=== PATIENT | male | born 1955 | race Caucasian/White ===

== ENCOUNTER 2024-04-23 23:41 | Inpatient (IN) | payer MEDICARE, SELFPAY ==
[2024-04-23 19:07] VITALS: BP 152/88
[2024-04-23 19:35] LABS: % Basophils 0.3 % (0-2); % Eosinophils 0.3 % (0-6); % Immature Granulocytes 0.6 % (0-0.5); % Monocytes 11.5 % (1.7-9.3); % Neutrophils 80.3 % (42.2-75.2); Absolute Eosinophils 0.1 10^3/uL (0-0.7); Absolute Immature Granulocytes 0.1 10^3/uL (0-0.05); Absolute Lymphocytes 1.1 10^3/uL (1.2-3.4); Absolute Monocytes 1.8 10^3/uL (0.1-0.6); Absolute Neutrophils 12.3 10^3/uL (1.4-6.5); Hematocrit 41.2 % (39.0-52.0); Mean Corpuscular Hgb 29.7 pg (27.0-31.0); Mean Corpuscular Volume 87.5 fL (80.0-94.0); Mean Platelet Volume 9.6 fL (7.4-10.4); Nucleated Red Blood Cells % 0 % (-); Platelet Count 256 10^3/uL (130-400); Red Blood Cell Count 4.71 10^6/uL (4.70-6.10); Red Cell Dist. Width 12.9 % (11.5-14.5); White Blood Cell Count 15.3 10^3/uL (4.8-10.8)
[2024-04-23 19:48] LABS: Lactic Acid 1.3 mmol/L (0.7-2.0)
[2024-04-23 19:50] LABS: ALT (SGPT) 17 U/L (0-50); AST (SGOT) 23 U/L (17-59); Albumin 3.9 g/dl (3.5-5.0); Alkaline Phosphatase 88 U/L (38-126); Blood Urea Nitrogen 21 mg/dl (9-20); Calcium 9.1 mg/dl (8.4-10.2); Carbon Dioxide 22 mmol/L (22-30); Chloride 102 mmol/L (98-107); Glucose 110 mg/dl (70-99); Potassium 3.3 mmol/L (3.5-5.1); Sodium 136 mmol/L (135-145); Total Bilirubin 1.2 mg/dl (0.2-1.3); Total Protein 6.7 g/dl (6.3-8.2); eGFR > 60.00
[2024-04-23 20:56] VITALS: BP 173/92
--- NOTE | 2024-04-23 21:06 | ED.GENMED ---
History of Present Illness
General
Chief Complaint: Skin Problem
Source: patient
Exam Limitations: none
Time Seen by Provider: 04/23/24 20:45
History of Present Illness
History of Present Illness:
68-year-old male presents with increased redness swelling and discoloration to the right ring finger. He has a history of multiple amputations to the right hand. He is not a diabetic. He is treated for hypertension. He denies fevers or chills.
No other complaints at this time. He called his hand surgeon today they started him on Bactrim. Has had 2 doses of this so far
Past History
Past History
ED Past Medical History: Cancer (Prostate), GERD, HTN, NIDDM and Other (Neuropathy, finger osteomyelitis); Negative IDDM
ED Past Surgical History: Appendectomy and Orthopedic (finger amputation x 3)
Social History
Tobacco: Non-smoker
Alcohol: None
Personal:
Living: with family
Family History
Family History: Other (reviewed and non-contributory)
Phy Exam
Physical Exam
Physical Exam:
General: Well-appearing male no acute respiratory distress
HEENT: Normocephalic atraumatic
Heart: Slightly tachycardic
Lungs: Clear no wheeze
Skin: Erythema with discoloration noted to the right ring finger. There is significant swelling to the right ring finger stump. No current drainage. Erythema is circumferential and spread slightly to the MCP joint. There is a chronic open wound
to the distal stump of the right index finger
Musculoskeletal exam: Right ring finger swollen tender diffusely
Sepsis
Sepsis Screening
Sepsis Assessment: Sepsis Ruled Out
Sepsis Screen
Sepsis Screen: Sepsis Ruled Out
Date: 04/23/24
Time: 21:40
Course
Orders/Labs/Results
Orders:
Orders
04/23/24 19:15
Comprehensive Metabolic Panel Urgent
04/23/24 19:16
C-Reactive Protein Urgent
Comment: ADD ON
Complete Blood Count/With Diff Urgent
Erythrocyte Sed Rate Urgent
Comment: ADD ON
Lactate Level [Lactic Acid] Urgent
04/23/24 20:54
CR Hand - Right Min 3 Views Urgent
Comment:
Reason For Exam: infection ring finger
04/23/24 21:00
Add On- LAB Urgent
Tests Added?: sed rate, crp
04/23/24 21:29
Piperacillin/Tazo 3.375 Gram [Zosyn] 3.375 gram in 50 ml IV NOW
Vancomycin [Vancocin] 2,000 mg 0.9% Sodium Chloride 500 ml [Nss] 500 ml IV NOW
04/23/24 21:45
Blood Culture Q30M
JOSUE Source: Blood/Venous
Specimen Description:
04/23/24 22:15
Blood Culture Q30M
JOUSE Source: Blood/Venous
Specimen Description:
Abnormal Lab Results
04/23/24 04/23/24
19:15 19:16
WBC 15.3 H 10^3/uL
(4.8-10.8)
Abs Immat Gran (auto) 0.1 H 10^3/uL
(0-0.05)
Absolute Neuts (auto) 12.3 H 10^3/uL
(1.4-6.5)
Absolute Lymphs (auto) 1.1 L 10^3/uL
(1.2-3.4)
Absolute Monos (auto) 1.8 H 10^3/uL
(0.1-0.6)
Immature Gran % 0.6 H %
(0-0.5)
Neutrophils % 80.3 H %
(42.2-75.2)
Lymphocytes % 7.0 L %
(20.5-51.1)
Monocytes % 11.5 H %
(1.7-9.3)
ESR 26 H mm/hour
(0-20)
Potassium 3.3 L mmol/L
(3.5-5.1)
BUN 21 H mg/dl
(9-20)
Glucose 110 H mg/dl
(70-99)
04/23/24 19:16
04/23/24 19:15
Vital Signs
Initial and Last Documented VS:
Initial Vital Signs
Temp Pulse Resp BP Pulse Ox
99.6 F 112 22 152/88 96
04/23/24 19:07 04/23/24 19:07 04/23/24 19:07 04/23/24 19:07 04/23/24 19:07
Last Documented Vital Signs
Temp Pulse Resp BP Pulse Ox
99.6 F 112 22 152/88 96
04/23/24 19:07 04/23/24 19:07 04/23/24 19:07 04/23/24 19:07 04/23/24 19:07
MDM/Problems Addressed
Differential Diagnosis Includes:
Right ring finger infection question cellulitis versus abscess versus osteomyelitis.
White blood cell count 15.3 initial heart rate was tachycardic. X-rays right hand pending. Sent pictures of the hand to hand specialist, Dr. Owens. Will plan on admitting for IV antibiotics and further evaluation
*Critical Care Note
Total Time (30-74mins, 75-104mins- exclusive of procedures): Not Applicable
Update Note
Update Note:
X-rays of the right hand negative for obvious signs of osteomyelitis. Lactic acid normal. Blood cultures ordered. Will start antibiotics given leukocytosis and elevated sed rate with tachycardia
ED Attending Note
-
Portions of this chart may have been created with voice recognition software.� Occasional wrong word or��sound alike� substitutions may have occurred due to the inherent limitations of voice recognition software.
Discharge Plan
Departure
Patient Disposition: Admit
Date of Disposition: 04/23/24
Time of Disposition: 21:39
Presentation/result/management discussed w/ accepting MD/DO: Hospitalist
Discharge Problem:
Cellulitis
Prescriptions:
No Action
rabeprazole [AcipHex] 20 MG tablet,delayed release (DR/EC)
20 mg PO DAILY
febuxostat 40 MG tablet
120 mg PO DAILY
tadalafil [Cialis] 5 MG tablet
5 mg PO DAILY
losartan 100 MG tablet
100 mg PO DAILY 30 Days Qty: 30 0RF
chlorthalidone 25 mg Tablet
25 mg PO DAILY
hydralazine 50 mg Tablet
50 mg PO BID
Interventions
Interventions:
*Risk Screen - Suicide Last Done: 04/23/24 19:07
*General Assessment Last Done: 04/23/24 21:16
*Neglect/Abuse Screening Last Done: 04/23/24 19:07
ED- Fall Risk Assessment Last Done: 04/23/24 21:20
*ED COVID-19 Vaccine History Last Done: 04/23/24 21:16
ED-Skin Assessment Last Done: 04/23/24 21:18
Discharge Date and Time
Print Language: ESTONIAN
[2024-04-23 21:15] VITALS: BMI 46.4
[2024-04-23 21:18] VITALS: BP 124/50
[2024-04-23 21:18] LABS: Erythrocyte Sed Rate 26 mm/hour (0-20)
[2024-04-23] MEDS: ZOSYN 50 IV (21:58)
[2024-04-23 22:00] VITALS: BP 117/58
[2024-04-23] MEDS: VANCOCIN 540 MG IV (22:32)
--- NOTE | 2024-04-23 22:57 | W.PN.UPDATE ---
Update Note
Progress Note Update
This is an addendum to the H&P written by Trena Quinn on 04/23/2024. Patient seen and examined independently with PA.
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
and pain with drainage and chills.
He was started on Bactrim today by his hand surgeon Dr. Owens.
X-ray shows no findings to suggest cortical bony destructive process.
Labs show hypokalemia. Elevated CRP.
Concern for recurrent soft tissue infection/ osteomyelitis of the right fourth finger. N.p.o. past midnight. Vancomycin/Zosyn. Ortho consulted.
Patient also has been having runs of tachycardia which appear to be narrow complex and regular up to 150s likely SVT and he is asymptomatic. Replete potassium. Consider beta-yancy if becomes persistent or symptomatic.
--- NOTE | 2024-04-23 23:08 | HPS.HSE ---
Family Physician
-
Family Physician: Napoleon Marques
Chief Complaint
-
Redness and Swelling of Right Ring Finger
History of Present Illness
Patient is a 68 y/o male past medical history of hypertension, gout and multiple finger amputations who presents with increasing redness and swelling of the right ring finger. Patient reports swelling and redness started on Tuesday. He notes the
tip of the finger split on Tuesday and has been oozing. Over the weekend he developed chills, but did not take his temperature.
Medical History
Past Medical History
Past Medical History: Reports Other
Additional Past Medical History:
Essential Hypertension
Gout
GERD
Prostate Cancer s/p Radiation
Class III Obesity due to Excess Calories
Past Surgical History: Reports Other
Additional Past Surgical History:
Appendectomy
Multiple Finger Amputations
Left Hand Surgery
Left Ankle Surgery
Social History
Tobacco: Non-smoker
Alcohol: Occasional
Drug: None
Personal:
Living: With Family
Family History
Family History: Not pertinent
Allergies / Home Medications
Allergies reflects when Allergies were last updated in [employer] [facility].
Home Medications with original date entered in [facility]
Allergy/Medication List:
Allergies
Allergy/AdvReac Type Severity Reaction Status Date / Time
lisinopril Allergy Swelling Verified 04/23/24 19:11
of lips
Opioids - Morphine Analogues Allergy Vomiting Verified 04/23/24 22:01
Opioids-Meperidine and Allergy Vomiting Verified 04/23/24 22:01
Related
Opioids-Methadone and Related Allergy Vomiting Verified 04/23/24 22:01
Home Medications
febuxostat 40 mg tablet 120 mg PO DAILY hyperurecemia 12/17/10
rabeprazole 20 mg tablet,delayed release (AcipHex) 20 mg PO DAILY Gastrointestinal issue 12/17/10
tadalafil 5 mg tablet (Cialis) 5 mg PO DAILY bph 08/03/21
losartan 100 mg tablet 100 mg PO DAILY 30 days #30 tabs 08/06/21
hydralazine 50 mg tablet 50 mg PO BID Blood pressure 11/01/21
diphenhydramine 25 mg-acetaminophen 500 mg tablet (Tylenol PM Extra Strength) 1 tab PO HS 04/23/24
ibuprofen 800 mg tablet 800 mg PO DAILY@0300 04/23/24
sulfamethoxazole 800 mg-trimethoprim 160 mg tablet (Bactrim DS) 1 tab PO BID 04/23/24
Review of Systems
-
A 12 point ROS was completed and negative except as noted: Yes
Constitutional: Reports Chills; Denies Fever
Respiratory: Denies Cough or Trouble Breathing
Cardiac: Denies Chest Pain or Palpitations
Abdomen/GI: Denies Abdominal Pain, Nausea, Vomiting or Diarrhea
Physical Exam
Vital Signs
Vital Signs
Temp Pulse Resp BP Pulse Ox
99.6 F 105 18 117/58 96
04/23/24 19:07 04/23/24 22:00 04/23/24 22:11 04/23/24 22:00 04/23/24 22:00
Physical Exam
General: Comfortable and Conversant
HEENT: Anicteric and Moist mucous membranes
Respiratory: Clear and Non Labored Respirations
Cardiac: S1/S2, Regular Rhythm and Tachycardia
GI: Soft and Non Tender
Rectal: Deferred by Provider
Musculoskeletal: No Clubbing and No Cyanosis
Skin: Warm, Dry and Other (Right Ringer Finger significantly edematous with erythema and some faint streaking up the hand)
Neuro: Awake, Alert and Oriented
Psych: Calm
Laboratory Results
-
04/23/24 19:16
04/23/24 19:15
Laboratory Results
Lactic Acid 1.3 mmol/L (0.7-2.0) 04/23/24 19:16
Total Bilirubin 1.2 mg/dl (0.2-1.3) 04/23/24 19:15
AST 23 U/L (17-59) 04/23/24 19:15
ALT 17 U/L (0-50) 04/23/24 19:15
Alkaline Phosphatase 88 U/L (38-126) 04/23/24 19:15
Data Reviewed
-
Diagnostic Radiology: Report Reviewed by me
Lab Data: Labs Reviewed by me
Impression/Plan
-
Sepsis secondary Right 4th Finger / Hand Cellulitis
-Consult Ortho
-Continue vancomycin and Zosyn
-NPO after midnight should patient require washout in OR
Intermittent Narrow-Complex Tachycardia with rates ~150, patient asymptomatic during event
-Continue to monitor on Telemetry
-Consider addition of beta-yancy
Essential Hypertension
-Continue hydralazine and losartan with hold parameters
Gout
-Patient maintained on febuxostat as outpatient
GERD
-Continue Protonix
Hx Prostate Cancer s/p Radiation
-Continue tadalafil
Class III Obesity due to Excess Calories
-Affects all aspects of care
DVT proph: Lovenox
Code Status: Full Code
[2024-04-23 23:18] LABS: Magnesium 1.7 mg/dl (1.6-2.3)
[2024-04-23] MEDS: KCL 40 MEQ PO (23:37)
[2024-04-24] VITALS (8 sets, daily range): BP systolic 113–168; BP diastolic 61–98; BMI 45.4; BMI 45.5
--- NOTE | 2024-04-24 01:45 | PTCARENOTE ---
Patient admitted from the ED. Patient ambulated into room. Patient AAOx3. Patient is able to state needs. Call oquendo within reach. Patient is NPO. Will continue with current plan.
[2024-04-24] MEDS: ZOSYN 50 IV ×4 (03:00→21:32)
[2024-04-24 07:57] LABS: Hematocrit 40.3 % (39.0-52.0); Hemoglobin 13.4 g/dL (13.0-18.0); Mean Corp Hgb Conc. 33.3 g/dL (33.0-37.0); Mean Corpuscular Hgb 29.6 pg (27.0-31.0); Mean Corpuscular Volume 89.2 fL (80.0-94.0); Mean Platelet Volume 9.7 fL (7.4-10.4); Platelet Count 247 10^3/uL (130-400); Red Blood Cell Count 4.52 10^6/uL (4.70-6.10); White Blood Cell Count 10.7 10^3/uL (4.8-10.8)
--- NOTE | 2024-04-24 08:07 | W.PN.UPDATE ---
Update Note
Progress Note Update
Pt seen and chart reviewed
Will need surgery on Hand
I have ordered MRI for further assessment/surgical planning
Plan is for OR tomorrow
thanks
GGMD
--- NOTE | 2024-04-24 08:17 | WOUNDNOTE ---
BECKA RN NOTE: Reviewed patient's chart, consulted for R finger wounds. Dr. Owens on consult and OR scheduled for R hand today. Will follow peripherally and assist as needed.
[2024-04-24 08:51] LABS: Blood Urea Nitrogen 21 mg/dl (9-20); Calcium 8.5 mg/dl (8.4-10.2); Carbon Dioxide 25 mmol/L (22-30); Chloride 105 mmol/L (98-107); Estimated Creatinine Clearance 88 ml/min; Glucose 138 mg/dl (70-99); Magnesium 1.7 mg/dl (1.6-2.3); Sodium 141 mmol/L (135-145); eGFR > 60.00
--- NOTE | 2024-04-24 09:09 | W.PN.HOSP.TC ---
Today's Communication/Plan
-
Assessment / Plan
Assessment / Plan
NAD
Scleral Anicteric
MMM
No JVD
CTABL
RRR, S1/S2
Obese, soft, NT, ND, BS+
Warm, Dry
Right hand ring finger swollen bruised tender erythematous but wounds some ulceration, also swelling of other digits
AAOx3
Calm
Hand cellulitis
-IV antibiotics
-Follow-up cultures
-Hand surgery plans for OR tomorrow
-Follow-up MRI
-- 1 mg IV Ativan ordered to be provided 30 minutes prior to MRI
Atrial Tachycardia/SVT
-Monitor on tele
-Tsh
-2d echo
-1 isolated episode
-Low dose long acting BB ordered
Gout
Maintained on febuxostat
Gerd
-Cotninue PPI
Hx of Prostate Ca s/p Radiation
-Continue tadalafil
HTN
-Continue hydral and losartan with holding parameters
Anticipated Discharge: > 48 hours
Subjective/Interval History
-
Date of Service: April 24, 2024
Seen and examined. No new complaints. No acute overnight events.
Objective Data
-
Labs:
Laboratory Results
04/24/24
07:20
WBC 10.7
Hgb 13.4
Hct 40.3
Plt Count 247
Sodium 141
Potassium 4.0
Chloride 105
Carbon Dioxide 25
BUN 21 H
Creatinine 1.2
Glucose 138 H
Calcium 8.5
Vital Signs:
Vital Signs
Temp Pulse Resp BP Pulse Ox
98.6 F 81 18 146/72 100
04/24/24 07:31 04/24/24 07:31 04/24/24 07:31 04/24/24 07:31 04/24/24 07:31
[2024-04-24] MEDS: TOPROL XL 12.5 MG PO (09:18)
[2024-04-24] MEDS: APRESOLINE 50 MG PO ×2 (09:21→20:36)
[2024-04-24] MEDS: PROTONIX 40 MG PO (09:21)
[2024-04-24] MEDS: COZAAR 100 MG PO (09:21)
--- NOTE | 2024-04-24 09:37 | PHA.VAN.IN ---
Assessment
- Assessment
Renal Function: Unknown baseline (SCR 0.8 in 2021 - no more recent data)
Concomitant Antimicrobials: piperacillin/tazobactam
- Previous Dosing Experience
Previous Regimen: Vanc 1500mg Q12H
Date of Regimen: July 2021
Provided Trough of: 11
Provided AUC of: 404
Patient's SCR is: Elevated compared to previous dosing experience (SCR 1.2 vs ~0.8)
Patient's weight is: Similar to previous dosing experience
Regimen provided the following additional patient-specific PK:
ke = 0.0820
half-life = 8.5 H
Cmax = 24.9 mcg/ml
Cmin = 10.5 mcg/ml
Vd = 90 L
Vanc Cl = 124
Levels were drawn after 4th maintenance dose - patient may have additional accumulation as may be slower to achieve steady state with weight > 100kg
Peak was drawn just under an hour and may lead to overestimation of AUC, Cmax and underestimation of half-life
Plan
- Plan
Initial / Loading Dose: 2000mg - 04/23 22:32
Maintenance Regimen: dosing by level
Monitoring: random 04/25 0600
Give 1000mg x1 to maintain level then 1500mg x1 at 1800
Will dose by level for now as SCR slightly elevated compared to prior experience
Patient also unlikely to follow population PK based on BMI
Pharmacokinetics Vancomycin I
- -
Patient Age: 68
Patient Sex: Male
Vancomycin Day #: 1
Indication: Skin And Soft Tissue
Requesting Provider: Naa Parnell
Pertinent Antimicrobial Allergies:
no pertinent antibiotic allergies
Height / Weight:
Height 6 ft
Actual Weight 152.038 kg
Pertinent Past Medical History: BMI ~45.5
- Vital Signs / Lab Results
Temp Pulse Resp BP Pulse Ox
98.6 F 81 18 146/72 100
04/24/24 07:31 04/24/24 09:18 04/24/24 07:31 04/24/24 09:18 04/24/24 07:31
Lab Results - Hematology
04/23/24 04/24/24
19:16 07:20
WBC 15.3 H 10.7
Lab Results - Chemistry
04/23/24 04/24/24
19:15 07:20
BUN 21 H 21 H
Creatinine 1.1 1.2
Estimated Creat Clear 88
Albumin 3.9
04/23/24
19:16
Lactic Acid 1.3
[2024-04-24 10:18] LABS: Glycohemoglobin (HgbA1c) 5.4 % (4.0-5.6)
[2024-04-24] MEDS: ULORIC PO (10:27)
[2024-04-24] MEDS: ULORIC 120 MG PO (10:28)
[2024-04-24] MEDS: VANCOCIN 200 IV (10:28)
--- NOTE | 2024-04-24 12:30 | CM ---
Pt seen bedside. Initial assessment completed. Admitted for redness and swelling of the right finger.
Pt reports that he lives w/ spouse in a split level home- no steps to enter the home. Pt is independent, denies DME for ambulation or daily functioning. Pt states he is a [employer]. Pt denies SNF/VN/PT hx. Pt engaged in OP therapy in the past.
Address, point of contact and insurance verified
Physical address- [address], [place] [address]. Legal address listed on face sheet
PCP: Dr. Marques
Pharmacy: [facility]
Plan is for OR tomorrow
Plan: Home; no needs when stable
[2024-04-24] MEDS: NSS (PRESERVATIVE FREE) 0.5 ML IV ×2 (13:27→13:30)
[2024-04-24] MEDS: ATIVAN 1 MG IV (13:29)
--- NOTE | 2024-04-24 14:00 | CARDSERVLU ---
Echocardiogram with Lumason completed after protocol screening completed. Allergies verified.
Patent IV site: _L wrist____
IV site flushed with 0.9% NaCl pre and post administration.
Diluted bolus method utilized to enhance visualization of ventricular emerson.
Total volume given: __2.5__ mL
Patient tolerated all procedures well without complications.
--- NOTE | 2024-04-24 16:35 | WOUNDNOTE ---
BECKA RN NOTE ADDENDUM: Confirmed with Dr. Thompson can cancel wound consult.
[2024-04-24] MEDS: LOVENOX 40 MG SC (17:09)
[2024-04-24] MEDS: VANCOCIN 530 MG IV (17:09)
[2024-04-25] MEDS: ZOSYN 50 IV ×2 (03:05→11:03)
[2024-04-25 03:39] VITALS: BP 127/70
[2024-04-25 05:50] VITALS: BMI 45.6
[2024-04-25 06:47] VITALS: BP 134/76
--- NOTE | 2024-04-25 07:53 | W.PN.UPDATE ---
Update Note
Progress Note Update
Pt seen and MRI reviewed
MRI with minimal pus collection and no osteomyelitis--mostly cellulitis
Exam only blood from opening on finger and not pus
Less swelling today and notes less pain
I am going to cancel surgery today and re-eval in AM
If any pus drainage then will take to OR
Otherwise if improved will treat with antibiotics alone
Will start local wound care today
Please consult ID service if possible
Thanks
GGMD
[2024-04-25] MEDS: ULORIC 120 MG PO (08:20)
[2024-04-25] MEDS: TOPROL XL 12.5 MG PO (08:24)
[2024-04-25] MEDS: BACITRACIN OINTMENT 1 APPLIC TOPICAL ×2 (08:25→21:28)
[2024-04-25] MEDS: PROTONIX 40 MG PO (08:25)
[2024-04-25] MEDS: COZAAR 100 MG PO (08:25)
[2024-04-25] MEDS: APRESOLINE 50 MG PO ×2 (08:25→20:00)
--- NOTE | 2024-04-25 08:35 | PHA.VAN.FU ---
Vancomycin Assessment / Plan
- Assessment
Renal Function: No New Labs Today
In the past 24 hrs, patient has been: Afebrile
Concomitant Antimicrobials: piperacillin/tazobactam
- Assessment - Therapeutic Drug Monitoring
Random Level: 11 - drawn ~14H after 1500mg
- Dosing Plan
Adjust Regimen to: Vanc 1500mg Q12H - first dose now then 1800
- Monitoring Plan
Trough Level: 04/26 05:30 - obtain level to trend with scheduled dosing
- Follow Up
Pharmacy will continue to follow.
Vancomycin Follow UP
- -
Patient Age: 68
Patient Sex: Male
Vancomycin Day #: 2
Indication: Skin And Soft Tissue
Requesting Provider: Naa Parnell
Pertinent Antimicrobial Allergies:
no pertinent antibiotic allergies
Height / Weight:
Height 6 ft
Actual Weight 152.271 kg
Pertinent Past Medical History: BMI ~45.5
- Vital Signs / Lab Results
Temp Pulse Resp BP Pulse Ox
98.3 F 87 18 134/76 95
04/25/24 06:47 04/25/24 06:47 04/25/24 06:47 04/25/24 08:25 04/25/24 06:47
Lab Results - Hematology
04/23/24 04/24/24
19:16 07:20
WBC 15.3 H 10.7
Lab Results - Chemistry
04/23/24 04/24/24
19:15 07:20
BUN 21 H 21 H
Creatinine 1.1 1.2
Estimated Creat Clear 88
Albumin 3.9
04/23/24
19:16
Lactic Acid 1.3
Microbiology Results
04/23/24 22:04 Blood Culture - Preliminary
Blood/Venous No Growth in 24 hours- Final report to follow
04/23/24 22:04 Blood Culture - Preliminary
Blood/Venous No Growth in 24 hours- Final report to follow
Therapeutic Drug Monitoring
Random Vancomycin 11.0 ug/ml 04/25/24 07:05
[2024-04-25 08:38] LABS: TSH Reflex To Free T4 2.81 uIU/ml (0.47-4.68)
[2024-04-25] MEDS: VANCOCIN 530 MG IV (09:05)
--- NOTE | 2024-04-25 11:38 | CON.ID ---
Consultation
-
Date/Time Consultation Requested: April 25, 2024 0901
Date/Time Consultation Performed: April 25, 2024 1140
Requesting Provider: Dr. Caden Thompson
Performing Provider: Dr. Rimma Watson
Reason for Consultation: right finger cellulitis
Chief Complaint / Past History
Chief Complaint
Right ring finer swelling
History of Present Illness
68-year-old male with history of gout controlled on febuxostat, history of multiple osteomyelitis of the right fingers of unclear etiology requiring partial amputations of index, middle, and ring fingers who presented to the hospital April 23 due
to acute right ring finger swelling. Patient reports on Tuesday, he noted the dorsum of the right ring finger was very red like a burn. His finger became very swollen. He developed a blister. Blister opened and he noted pus coming out. He
complained of chills. Admission white count was 15.3. He was started on vancomycin and Zosyn in the ER. MRI of the hand showed possible abscess. Orthopedic canceled the OR today because he expressed blood rather than pus today. Patient denies
cuts or trauma to the finger. 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 No gout flare. He is right-handed.
Past History
Additional Past Medical History:
HTN
JULIANA
gout on febuxostat
Class III obesity BMI 46
Partial amputations of R index finger (x2), middle finger (x2), ring finger due to osteo of unclear etiology
prostate CA s/p XRT
Left ankle surgery
Left wrist I+D
Appendectomy
Allergy History:
lisinopril Allergy (Verified 04/23/24 19:11)
Swelling of lips
Opioids - Morphine Analogues Allergy (Verified 04/23/24 22:01)
Vomiting
Opioids-Meperidine and Related Allergy (Verified 04/23/24 22:01)
Vomiting
Opioids-Methadone and Related Allergy (Verified 04/23/24 22:01)
Vomiting
Medications Reviewed: Yes
Current Antibiotics:
Vancomycin
Zosyn
Social History
Tobacco: Non-Smoker
Alcohol: Occasional
Drug: None
Personal:
Living: With Family
Employment: Employed ([employer])
Family History
Family History: Not Pertinent
Review of Systems
Review of Systems
General: Chills; Negative Change in Appetite
HEENT: Negative Sinus Problems, Headache or Pharyngitis
Cardiovascular: Negative Chest Pain or Dyspnea
Respiratory: Negative Dyspnea or Cough
Gasteroenterology: Negative Nausea, Vomiting or Diarrhea
Genital / Urological: Negative Dysuria or Flank Pain
Endocrine: Negative Weakness
Neurological: Negative Dizziness
All systems: All other systems were reviewed and were negative
Vital Signs
Temp Pulse Resp BP Pulse Ox
98.3 F 87 18 134/76 95
04/25/24 06:47 04/25/24 06:47 04/25/24 06:47 04/25/24 08:25 04/25/24 06:47
Physical Exam
Physical Exam
Constitutional: No Acute Distress and Obese
Eyes: No Conjunctival Hemorrhage and Sclera Anicteric
Cardiovascular: Regular Rate and S1/S2
Pulmonary: Clear
Gastrointestinal: Soft, Non Tender, Non Distended and Normal Bowel Sounds
Extremities: Negative Edema (BLE)
Wound: Other (right 4th finger partial amp very edematous, + wound dorso-lateral, some blood, + erythema)
Lab / Diagnostic Study Results
04/24/24 07:20
04/24/24 07:20
Abs Immat Gran (auto) 0.1 10^3/uL (0-0.05) H 04/23/24 19:16
Absolute Neuts (auto) 12.3 10^3/uL (1.4-6.5) H 04/23/24 19:16
Absolute Lymphs (auto) 1.1 10^3/uL (1.2-3.4) L 04/23/24 19:16
Absolute Monos (auto) 1.8 10^3/uL (0.1-0.6) H 04/23/24 19:16
Absolute Basos (auto) 0.0 10^3/uL (0-0.2) 04/23/24 19:16
Immature Gran % 0.6 % (0-0.5) H 04/23/24 19:16
Neutrophils % 80.3 % (42.2-75.2) H 04/23/24 19:16
Lymphocytes % 7.0 % (20.5-51.1) L 04/23/24 19:16
Monocytes % 11.5 % (1.7-9.3) H 04/23/24 19:16
Eosinophils % 0.3 % (0-6) 04/23/24 19:16
Basophils % 0.3 % (0-2) 04/23/24 19:16
ESR 26 mm/hour (0-20) H 04/23/24 19:16
Lactic Acid 1.3 mmol/L (0.7-2.0) 04/23/24 19:16
C-Reactive Protein 192.90 mg/L (0.0-10.00) H 04/23/24 19:16
Microbiology Results
Micro:
04/23/24 22:04 Blood Culture - Preliminary
Blood/Venous No Growth in 24 hours- Final report to follow
04/23/24 22:04 Blood Culture - Preliminary
Blood/Venous No Growth in 24 hours- Final report to follow
04/24/24 MRI R hand: Findings of cellulitis involving the right ring finger, greatest distally adjacent to the partially amputated middle phalanx. Within the soft tissues adjacent to the partially amputated middle phalanx, there are focal areas of
nonenhancement, suggesting devitalized soft tissue and/or abscess. No convincing evidence for osteomyelitis.
Assessment / Plan
# Right ring finger cellulitis
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
# leukocytosis resolved.
- No surgical intervention per ortho.
- Narrow Vanco/Zosyn to cefazolin.
- Follow clinically.
[2024-04-25 12:20] VITALS: BP 154/91
[2024-04-25] MEDS: ANCEF 10 IV ×2 (14:03→21:28)
--- NOTE | 2024-04-25 14:06 | PN.CDI ---
CDI
- -
CDI:
Physician Documentation Request
Admit Date: 04/23/24 23:41
Dear Doctor Jay,
Please review the following and provide your response in the progress notes.
Clinical Indicators:
The diagnosis of sepsis was documented on 04/23 H&P but is not consistently noted in subsequent documentation.
- 04/23 H&P 'Sepsis secondary Right 4th Finger / Hand Cellulitis'
- 04/24 PN 'Hand cellulitis'
- On admission: WBC 15.3, HR 100s, RR 20s
- IV abx Ancef, Vancomycin, Zosyn
Please clarify the following:
____ - Sepsis was present on admission and is now resolved.
____ - Sepsis was present on admission and is still being monitored, evaluated or treated
____ - Sepsis was ruled out
____ - Other
Use of terms such as suspected, likely, concern for, or probable (associated with a specific diagnosis that is being evaluated, monitored, or treated as if it exists) are acceptable and can be coded in the inpatient setting, when documented at the
time of discharge.
Thank you,
Jeremias Dye RN
CDI Specialist
Please use your independent medical judgment in providing your response.
--- NOTE | 2024-04-25 15:38 | W.PN.HOSP.TC ---
Today's Communication/Plan
-
Assessment / Plan
Assessment / Plan
NAD
Scleral Anicteric
MMM
No JVD
CTABL
RRR, S1/S2
Obese, soft, NT, ND, BS+
Warm, Dry
Right hand ring finger swollen bruised tender erythematous but wounds some ulceration, also swelling of other digits
AAOx3
Calm
Hand cellulitis
-IV antibiotics, ID changed to Ancef
-Follow-up cultures
-MRI without evidence of osteo, mostly cellulitis possible abscess
--As his previous amputations have been related to PAD/poor blood flow of the, will ask vascular surgery to come by and evaluate, continue Cialis.
----May need ABIs
Atrial Tachycardia/SVT
-Monitor on tele
-Tsh 2.81
-2d echo, EF 50 to 55%, stage I DD
-1 isolated episode
-Low dose long acting BB ordered
Gout
Maintained on febuxostat
Gerd
-Cotninue PPI
Hx of Prostate Ca s/p Radiation
-Continue tadalafil
HTN
-Continue hydral and losartan with holding parameters
Anticipated Discharge: 24 - 48 hours
Subjective/Interval History
-
Date of Service: April 25, 2024
Seen and examined. No new complaints. No acute overnight events.
OR was canceled
Surgery did a bedside drainage
Objective Data
-
Vital Signs:
Vital Signs
Temp Pulse Resp BP Pulse Ox
98.1 F 84 16 154/91 95
04/25/24 12:20 04/25/24 12:20 04/25/24 12:20 04/25/24 12:20 04/25/24 06:47
I&O
04/24/24 04/25/2425
06:59 06:59 06:59
Intake Total 1300 / 1300
Balance 1300 / 1300
--- NOTE | 2024-04-25 15:42 | CON.VAS ---
Addendum entered and electronically signed by Slim Gonsalez MD 04/26/24 07:49:
Seen and evaluated with DINORA Villareal. Agree with findings as noted below. Patient known to me from prior angiogram in 2018 for similar issues. Has potential small vessel or palmar arch and digital vessel poor perfusion, but nothing could offer from a
vascular surgical perspective. On his exam currently he has easily palpable 2+ brachial, radial, ulnar pulses. I suspect unfortunately that may not be much I can offer here from a vascular perspective. However we will obtain noninvasive
ultrasound/segmental pressure studies.
Addendum entered and electronically signed by RADHA Hernandez 04/25/24 16:54:
Right upper extremity
Right upper extremity
Original Note:
Consultation
Consultation Request
Date/Time Consultation Performed: 04/25/2024 1540
Requesting Provider: Hospitalist
Performing Provider: Rimma Villareal NP-C for Slim Gonsalez MD
Reason for Consultation: RUE chronic wounds and digit amputations
Medical History
-
Chief Complaint: RUE acute right upper extremity ring finger wound
History of Present Illness:
This is a 68-year-old male significant past medical history of prostate cancer, hypertension, gout, and multiple right hand digit amputations who presented to [facility] on 04/23/2024 for acute wound on right upper extremity hand imitation
site of ring finger. Patient endorses that he noted increased swelling and redness on roughly 04/20/2024 and by the following day wound was oozing and open. Over the weekend he noted chills which prompted him to seek ED evaluation. Patient has a
significant past medical history of multiple digit potation's to right hand with no clear etiology. Vascular surgery was consulted in 2018 following digit amputations with nonhealing wounds at the time and for completeness Dr. Slim Gonsalez performed
right upper extremity arteriogram which did not demonstrate any large vessel occlusion or stenosis. Patient has been following in the outpatient setting with Dr. Owens and infectious disease at [facility] but has not continued with routine
follow-up with a vascular surgeon, nor has he felt or been told he required to see one. He denies any history of claudication or rest pain. He offers no no other complaints and denies recent illness or trauma.
Past Medical History
Past Medical History: HTN and Other (gout, Prostate Cancer s/p Radiation, Class III Obesity due to Excess Calories)
Past Surgical History: Appendectomy and Other (multiple right hand finger amputations, left hand surgery, left ankle surgery, Right upper extremity arteriogram 08/26)
Social History
Tobacco: Non-Smoker
Alcohol: Occasional
Drug: None
Personal:
Living: With Family
Employment: Employed ([employer] )
Family History
Family History: Reviewed & Not Pertinent
Allergies / Home Medications
Allergy/AdvReac Type Severity Reaction Status Date / Time
lisinopril Allergy Swelling Verified 04/23/24 19:11
of lips
Opioids - Morphine Analogues Allergy Vomiting Verified 04/23/24 22:01
Opioids-Meperidine and Allergy Vomiting Verified 04/23/24 22:01
Related
Opioids-Methadone and Related Allergy Vomiting Verified 04/23/24 22:01
�Medication �Instructions �Recorded �Confirmed �Type
febuxostat 40 mg tablet 120 mg PO DAILY hyperurecemia 12/17/10 04/23/24 History
rabeprazole 20 mg tablet,delayed 20 mg PO DAILY Gastrointestinal 12/17/10 04/23/24 History
release (AcipHex) issue
tadalafil 5 mg tablet (Cialis) 5 mg PO DAILY bph 08/03/21 04/23/24 History
losartan 100 mg tablet 100 mg PO DAILY 30 days #30 tabs 08/06/21 04/23/24 Rx
hydralazine 50 mg tablet 50 mg PO BID Blood pressure 11/01/21 04/23/24 History
diphenhydramine 25 1 tab PO HS 04/23/24 04/23/24 History
mg-acetaminophen 500 mg tablet
(Tylenol PM Extra Strength)
ibuprofen 800 mg tablet 800 mg PO DAILY@0300 04/23/24 04/23/24 History
sulfamethoxazole 800 1 tab PO BID 04/23/24 04/23/24 History
mg-trimethoprim 160 mg tablet
(Bactrim DS)
Review of Systems
-
History Source: Patient
Constitutional: Reports No Symptoms
EENT: Reports No Symptoms
Respiratory: Reports No Symptoms
Cardiac: Reports No Symptoms
Vascular: Denies Leg Pain / Claudication
Abdomen/GI: Reports No Symptoms
: Reports No Symptoms
Musculoskeletal: Reports No Symptoms
Skin: Reports Other (Chronic right hand pointer finger non healing amputation site wound and newly acute pointer finger amputation site wound )
Neurological: Reports No Symptoms
Endocrine: Reports No Symptoms
Physical Exam
Vital Signs
Temp Pulse Resp BP Pulse Ox
98.1 F 84 16 154/91 95
04/25/24 12:20 04/25/24 12:20 04/25/24 12:20 04/25/24 12:20 04/25/24 06:47
Lab Results
04/24/24 07:20
04/24/24 07:20
Physical Exam
General: No Apparent Distress and Comfortable
HEENT: Normocephalic, Anicteric and Atraumatic
Respiratory: Non Labored Respirations
Cardiac: Negative JVD
GI: Soft, Non Tender and Non Distended
Musculoskeletal: No Edema
Skin: Warm and Other (Dry wound at tip of right hand pointer finger, patient reports is chronic. Right hand ring finger amputation site with acute wound, wet but non-malodorous and without purulent drainage. See HPI for picture. )
Neuro: AO x 3
Psych: Calm
Pulses: Bilateral Femoral: +2 (Bilateral radial and ulnar pulses +2), Bilateral Dorsalis Pedis: +2 and Bilateral Posterior Tibial: +2
Assessment / Plan
-
Assessment: 68-year-old male with significant medical history of multiple amputations at right hand for nonhealing wounds vascular surgery consulted to assess if degree of peripheral arterial disease is contributing to nonhealing.
Plan:
Low suspicion that large vessel arterial stenosis or occlusion is contributing to nonhealing right hand digit amputation sites as patient has +2 palpable radial and ulnar pulse. However, for completeness and to establish a baseline we will obtain
arterial ultrasound with segmental pressures of bilateral upper extremities to assess for any degree of narrowing or decreased distal pressure. Final surgical plan pending results of ultrasound.
I performed this shared service with the attending. I evaluated the patient [id number] and have entered clinical documentation as shown in the encounter note. I performed the following component(s):�history and physical exam. Note that medical
decision making is not final until attested by vascular attending.
[2024-04-25 16:15] VITALS: BP 166/99
[2024-04-25] MEDS: LOVENOX 40 MG SC (17:04)
[2024-04-25 19:45] VITALS: BP 172/102
[2024-04-25 23:24] VITALS: BP 165/94
[2024-04-26 03:30] VITALS: BP 148/86
[2024-04-26] MEDS: ANCEF 10 IV ×3 (05:19→21:43)
[2024-04-26 06:00] VITALS: BMI 45.6
--- NOTE | 2024-04-26 06:47 | W.PN.UPDATE ---
Update Note
Progress Note Update
Looks better clinically
Less edema and no pus drainage
No osteomyelitis on MRI
Suspect will need terminal manager antibx as outpt
Continue with local wound care as instructed--continue at home
Please have F/U with me in about 7-10 days
DC date as per Hosp/ID/Vasc services
thanks
GGMD
[2024-04-26 07:30] VITALS: BP 162/103
[2024-04-26] MEDS: ULORIC 120 MG PO (08:09)
[2024-04-26] MEDS: APRESOLINE 50 MG PO ×2 (08:09→19:58)
[2024-04-26] MEDS: COZAAR 100 MG PO (08:09)
[2024-04-26] MEDS: PROTONIX 40 MG PO (08:09)
[2024-04-26] MEDS: TOPROL XL 12.5 MG PO (08:09)
[2024-04-26] MEDS: BACITRACIN OINTMENT 1 APPLIC TOPICAL ×2 (08:10→19:58)
--- NOTE | 2024-04-26 10:12 | W.PN.ID1 ---
Date of Service
Date of Service: April 26, 2024
Today's Communication
Continue cefazolin.
Assessment / Plan
# Right ring finger cellulitis
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
Possible poor perfusion not amenable to endovascular intervention
# leukocytosis resolved.
# [place] lesion left wrist
- No surgical intervention per ortho.
- Continue cefazolin.
- Monitor rash on wrist
- Follow clinically.
Chief Complaint
-: Cellulitis
Subjective / Review of Systems
Finger feels better,
Developed round lesion on right wrist, not itchy.
Vital Signs / Physical Exam
Vital Signs
Vital Signs
Temp Pulse Resp BP Pulse Ox
98.7 F 80 20 162/103 96
04/26/24 07:30 04/26/24 07:30 04/26/24 07:30 04/26/24 07:30 04/26/24 07:30
Physical Exam
Constitutional: No Acute Distress and Comfortable
Cardiovascular: Regular Rate and S1/S2
Pulmonary: Clear
Gastrointestinal: Soft, Non Distended and Normal Bowel Sounds
Skin: Rash (Round red macule, size nickel over left wrist ulnar side)
Wound: Other (Right ring finger less edema, erythema, lateral wound dried blood)
Neurological: AO x 3
Objective Data
Lab Data
Lab Results
04/24/24 07:20
04/24/24 07:20
ESR 26 mm/hour (0-20) H 04/23/24 19:16
Estimated Creat Clear 88 ml/min 04/24/24 07:20
Lactic Acid 1.3 mmol/L (0.7-2.0) 04/23/24 19:16
Total Bilirubin 1.2 mg/dl (0.2-1.3) 04/23/24 19:15
AST 23 U/L (17-59) 04/23/24 19:15
ALT 17 U/L (0-50) 04/23/24 19:15
Alkaline Phosphatase 88 U/L (38-126) 04/23/24 19:15
C-Reactive Protein 192.90 mg/L (0.0-10.00) H 04/23/24 19:16
Most recent labs reviewed.
Micro Results:
04/23/24 22:04 Blood Culture - Preliminary
Blood/Venous No Growth in 48 hours- Final report to follow
04/23/24 22:04 Blood Culture - Preliminary
Blood/Venous No Growth in 48 hours- Final report to follow
04/25/24 13:04 Wound Culture - Pending
Finger - Right Gram Stain - Preliminary
04/24/24 MRI R hand: Findings of cellulitis involving the right ring finger, greatest distally adjacent to the partially amputated middle phalanx. Within the soft tissues adjacent to the partially amputated middle phalanx, there are focal areas of
nonenhancement, suggesting devitalized soft tissue and/or abscess. No convincing evidence for osteomyelitis.
Care Review
Plan reviewed with: Physician (Dr. Devika Thompson)
[2024-04-26 11:23] VITALS: BP 169/109
--- NOTE | 2024-04-26 14:02 | W.PN.UPDATE ---
Update Note
Progress Note Update
Noninvasive arterial imaging studies reviewed. As suspected no evidence of arterial insufficiency to the right upper extremity. Therefore, likely nothing more for me to offer from a vascular surgical perspective. His finger brachial indices at
the fifth digit are suggestive of adequate perfusion for wound healing to the hand. Will sign off. Please call with questions.
[2024-04-26 15:28] VITALS: BP 174/95
--- NOTE | 2024-04-26 15:33 | W.PN.HOSP.TC ---
Addendum entered and electronically signed by Caden Thompson MD 04/26/24 16:47:
Sepsis
Original Note:
Today's Communication/Plan
-
Assessment / Plan
Assessment / Plan
NAD
Scleral Anicteric
MMM
No JVD
CTABL
RRR, S1/S2
Obese, soft, NT, ND, BS+
Warm, Dry
Right hand ring finger swollen bruised tender erythematous but wounds some ulceration, also swelling of other digits.
AAOx3
Calm
Hand cellulitis
-IV antibiotics, ID changed to Ancef
-Follow-up cultures
-MRI without evidence of osteo, mostly cellulitis possible abscess
--Was drained at bedside by hand surgery not much output
Evaluated by vascular surgery, more vascular surgery to offer from a vascular surgical perspective as noninvasive arterial imaging studies did not show arterial insufficiency to the right upper extremity. His finger/brachial indices at the fifth
digit are suggestive of adequate perfusion for wound healing
Atrial Tachycardia/SVT
-Monitor on tele
-Tsh 2.81
-2d echo, EF 50 to 55%, stage I DD
-1 isolated episode
-Low dose long acting BB ordered
Gout
Maintained on febuxostat
Gerd
-Cotninue PPI
Hx of Prostate Ca s/p Radiation
-Continue tadalafil
HTN
-Continue hydral and losartan with holding parameters
Anticipated Discharge: 24 - 48 hours
Subjective/Interval History
-
Date of Service: April 26, 2024
Seen and examined. No new complaints. No acute overnight events.
Asking to take a shower
Objective Data
-
Vital Signs:
Vital Signs
Temp Pulse Resp BP Pulse Ox
97.9 F 90 18 174/95 97
04/26/24 15:28 01/16/25 15:28 04/26/24 15:28 04/26/24 15:28 04/26/24 15:28
I&O
04/25/24 04/26/24 04/27/24
06:59 06:59 06:59
Intake Total 1300 / 1300 240 / 240
Output Total 125 / 125
Balance 1300 / 1300 115 / 115
[2024-04-26] MEDS: LOVENOX 40 MG SC (17:37)
[2024-04-26 19:45] VITALS: BP 168/100
[2024-04-26] MEDS: TYLENOL 650 MG PO (22:11)
[2024-04-26 23:39] VITALS: BP 151/86
[2024-04-27 03:49] VITALS: BP 163/93
[2024-04-27] MEDS: ANCEF 10 IV ×2 (05:08→11:59)
[2024-04-27 07:00] VITALS: BP 157/89
[2024-04-27] MEDS: ULORIC 120 MG PO (08:41)
[2024-04-27] MEDS: COZAAR 100 MG PO (08:41)
[2024-04-27] MEDS: PROTONIX 40 MG PO (08:43)
[2024-04-27] MEDS: APRESOLINE 50 MG PO (08:43)
[2024-04-27] MEDS: TOPROL XL 12.5 MG PO (08:43)
[2024-04-27] MEDS: BACITRACIN OINTMENT 1 APPLIC TOPICAL (08:44)
[2024-04-27 11:00] VITALS: BP 192/113
--- NOTE | 2024-04-27 11:14 | W.PN.ID1 ---
Date of Service
Date of Service: April 27, 2024
Today's Communication
Last dose cefazolin at 13:00 today, then dc home on cephalexin 1000mg po qid through 05/06/24.
Assessment / Plan
# Right ring finger cellulitis improving
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
Arterial study normal
# leukocytosis resolved.
# [place] lesion left wrist stable
- No surgical intervention per ortho.
- Swab +MSSA
- Last dose cefazolin at 13:00 today, then dc home on cephalexin 1000mg po qid through 05/06/24.
Chief Complaint
-: Cellulitis
Subjective / Review of Systems
Finger improving.
Vital Signs / Physical Exam
Vital Signs
Vital Signs
Temp Pulse Resp BP Pulse Ox
98.2 F 82 16 157/89 97
04/27/24 07:00 04/27/24 07:00 04/27/24 07:00 04/27/24 07:00 04/27/24 07:00
Physical Exam
Constitutional: No Acute Distress and Comfortable
Cardiovascular: Regular Rate and S1/S2
Pulmonary: Clear
Gastrointestinal: Soft, Non Tender and Non Distended
Extremities: Other (Right ring finger edema/erythema decreasing, wound clean)
Skin: Rash (right wrist round rash stable.)
Neurological: AO x 3
Objective Data
Lab Data
Lab Results
04/24/24 07:20
04/24/24 07:20
ESR 26 mm/hour (0-20) H 04/23/24 19:16
Estimated Creat Clear 88 ml/min 04/24/24 07:20
Lactic Acid 1.3 mmol/L (0.7-2.0) 04/23/24 19:16
Total Bilirubin 1.2 mg/dl (0.2-1.3) 04/23/24 19:15
AST 23 U/L (17-59) 04/23/24 19:15
ALT 17 U/L (0-50) 04/23/24 19:15
Alkaline Phosphatase 88 U/L (38-126) 04/23/24 19:15
C-Reactive Protein 192.90 mg/L (0.0-10.00) H 04/23/24 19:16
Most recent labs reviewed.
Micro Results:
04/25/24 13:04 Wound Culture - Final
Finger - Right S aureus-Methicillin Sensitive
Gram Stain - Final
04/23/24 22:04 Blood Culture - Preliminary
Blood/Venous No Growth in 72 hours- Final report to follow
04/23/24 22:04 Blood Culture - Preliminary
Blood/Venous No Growth in 72 hours- Final report to follow
04/24/24 MRI R hand: Findings of cellulitis involving the right ring finger, greatest distally adjacent to the partially amputated middle phalanx. Within the soft tissues adjacent to the partially amputated middle phalanx, there are focal areas of
nonenhancement, suggesting devitalized soft tissue and/or abscess. No convincing evidence for osteomyelitis.
Care Review
Plan reviewed with: Physician (Dr. Seb Thompson)
--- NOTE | 2024-04-27 12:16 | W.PN.HOSP.TC ---
Today's Communication/Plan
-
DC home after 1 PM IV antibiotics are completed
Assessment / Plan
Assessment / Plan
NAD
Scleral Anicteric
MMM
No JVD
CTABL
RRR, S1/S2
Obese, soft, NT, ND, BS+
Warm, Dry
Right hand ring finger swollen bruised tender erythematous but wounds some ulceration, also swelling of other digits.
AAOx3
Calm
Hand cellulitis
-IV antibiotics, ID changed to Ancef, transition to oral antibiotics until 05/06/2024 per ID with Keflex 1000 mg 4 times daily
-Follow-up cultures�MSSA
-MRI without evidence of osteo, mostly cellulitis possible abscess
--Was drained at bedside by hand surgery not much output
Evaluated by vascular surgery, more vascular surgery to offer from a vascular surgical perspective as noninvasive arterial imaging studies did not show arterial insufficiency to the right upper extremity. His finger/brachial indices at the fifth
digit are suggestive of adequate perfusion for wound healing
Atrial Tachycardia/SVT
-Monitor on tele
-Tsh 2.81
-2d echo, EF 50 to 55%, stage I DD
-1 isolated episode
-Low dose long acting BB ordered
-Outpatient follow-up with cardiology
Gout
Maintained on febuxostat
Gerd
-Cotninue PPI
Hx of Prostate Ca s/p Radiation
-Continue tadalafil
HTN
-Continue hydral and losartan with holding parameters
Discharge home
Anticipated Discharge: Today
Subjective/Interval History
-
Date of Service: April 27, 2024
Seen and examined. No new complaints. No acute overnight events per
Objective Data
-
Vital Signs:
Vital Signs
Temp Pulse Resp BP Pulse Ox
98.2 F 82 16 157/89 97
04/27/24 07:00 04/27/24 07:00 04/27/24 07:00 04/27/24 07:00 04/27/24 07:00
I&O
04/26/24 04/27/24 04/28/24
06:59 06:59 06:59
Intake Total 240 / 240 720 / 720
Output Total 125 / 125
Balance 115 / 115 720 / 720
--- NOTE | 2024-04-27 12:18 | W.DCSUMMARY ---
Discharge Summary
Discharge Data
Date of Admission: 04/23/24
Date of Discharge: 04/27/24
-
Pending Results: No
Hospital Course
68 y/o male past medical history of hypertension, gout and multiple finger amputations
Presented with complaints of increased redness swelling of the right ring finger. Evaluated by hand surgery recommended MRI of the hand to rule out osteomyelitis. MRI completed demonstrated cellulitis without osteomyelitis. Hand surgery was able
to squeeze some fluid fortunately without pus. Wound culture growing Staphylococcus evaluated by infectious diseases recommended to continue oral antibiotics until May 06, 2024. Will need outpatient hand surgery follow-up. Additionally,
continue recommended wound care by hand surgery with peroxide soaks twice a day and follow wound care instructions with bacitracin, Adaptic dressing Bactroban cleanse with saline and Dakin's wet-to-dry Yasmeen wrap.
Additionally, should be noted that he was evaluated by vascular surgery. Arterial studies were completed without evidence of bilateral upper extremity arterial insufficiency and brachial indices were with in normal limits. Vascular surgery unable
to provide any additional recommendations at this time. Outpatient follow-up.
Hospital course was complicated by atrial tachycardia/SVT for which metoprolol succinate 12.5 mg daily was started. Was monitored on telemetry. 2D ultrasound was completed that demonstrated a squeezing function of 50 to 55% with no regional wall
motion abnormalities, stage I diastolic dysfunction. Will need outpatient cardiology follow-up
2d echo
CONCLUSIONS
Technically difficult study Normal left ventricular chamber size. Normal left
ventricular wall thickness. Normal left ventricular systolic function. Left
ventricular ejection fraction is 50-55% by Esteban's method of discs. Normal
regional wall motion. Stage I diastolic dysfunction suggestive of abnormal
relaxation.
Normal right ventricular size and function.
Mitral valve opens normally. Mild mitral annular calcification. Trace mitral
regurgitation.
Aortic valve opens normally. No aortic regurgitation is seen.
Aorta mildly dilated at Sinus of Valsalva 4.2cm.
Hand Xray
IMPRESSION:
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
No findings to suggest foal cortical bony destructive process. Consider MRI for more complete evaluation if there is a clinical suspicion for osteomyelitis.
Diffuse soft tissue swelling of the residual right ring finger.
UE MRI
IMPRESSION: Findings of cellulitis involving the right ring finger, greatest distally adjacent to the partially amputated middle phalanx.
Within the soft tissues adjacent to the partially amputated middle phalanx, there are focal areas of nonenhancement, suggesting devitalized soft tissue and/or abscess.
No convincing evidence for osteomyelitis.
RUE Artieral Study
IMPRESSION: No evidence of bilateral upper extremity arterial insufficiency. Bilateral wrist and finger brachial indices are within normal limits (performed on the fifth digit in the right hand due to prior amputations of other digits). Multiphasic
waveforms are noted throughout bilateral upper extremity arteries with no velocity elevations to suggest any significant stenoses.
Discharge Plan
-
Patient Disposition: Home with Home Care
Discharge Diagnosis/Procedures: right hand cellulitis
Condition: Good
Diet: Low Fat, Low Cholesterol, Low Sodium and No added salt
Wound Care:
4th
Activity Restrictions/Additional Instructions:
Presented with complaints of increased redness swelling of the right ring finger. Evaluated by hand surgery recommended MRI of the hand to rule out osteomyelitis. MRI completed demonstrated cellulitis without osteomyelitis. Hand surgery was able
to squeeze some fluid fortunately without pus. Wound culture growing Staphylococcus evaluated by infectious diseases recommended to continue oral antibiotics until May 06, 2024. Will need outpatient hand surgery follow-up. Additionally,
continue recommended wound care by hand surgery with peroxide soaks twice a day and follow wound care instructions with bacitracin, Adaptic dressing Bactroban cleanse with saline and Dakin's wet-to-dry Yasmeen wrap.
Additionally, should be noted that he was evaluated by vascular surgery. Arterial studies were completed without evidence of bilateral upper extremity arterial insufficiency and brachial indices were with in normal limits. Vascular surgery unable
to provide any additional recommendations at this time. Outpatient follow-up.
Hospital course was complicated by atrial tachycardia/SVT for which metoprolol succinate 12.5 mg daily was started. Was monitored on telemetry. 2D ultrasound was completed that demonstrated a squeezing function of 50 to 55% with no regional wall
motion abnormalities, stage I diastolic dysfunction. Will need outpatient cardiology follow-up
2d echo
CONCLUSIONS
Technically difficult study Normal left ventricular chamber size. Normal left
ventricular wall thickness. Normal left ventricular systolic function. Left
ventricular ejection fraction is 50-55% by Esteban's method of discs. Normal
regional wall motion. Stage I diastolic dysfunction suggestive of abnormal
relaxation.
Normal right ventricular size and function.
Mitral valve opens normally. Mild mitral annular calcification. Trace mitral
regurgitation.
Aortic valve opens normally. No aortic regurgitation is seen.
Aorta mildly dilated at Sinus of Valsalva 4.2cm.
Hand Xray
IMPRESSION:
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
No findings to suggest foal cortical bony destructive process. Consider MRI for more complete evaluation if there is a clinical suspicion for osteomyelitis.
Diffuse soft tissue swelling of the residual right ring finger.
UE MRI
IMPRESSION: Findings of cellulitis involving the right ring finger, greatest distally adjacent to the partially amputated middle phalanx.
Within the soft tissues adjacent to the partially amputated middle phalanx, there are focal areas of nonenhancement, suggesting devitalized soft tissue and/or abscess.
No convincing evidence for osteomyelitis.
RUE Artieral Study
IMPRESSION: No evidence of bilateral upper extremity arterial insufficiency. Bilateral wrist and finger brachial indices are within normal limits (performed on the fifth digit in the right hand due to prior amputations of other digits). Multiphasic
waveforms are noted throughout bilateral upper extremity arteries with no velocity elevations to suggest any significant stenoses.
Referrals:
Fransisco Owens MD [Active] - in two to four weeks
Slim Gonsalez MD [Active] -
Napoleon Marques MD [Family Provider] - in one to two weeks
Prescriptions:
New
bacitracin zinc 500 unit/gram Ointment
1 applic topical BID Qty: 8136 0RF
metoprolol succinate 25 mg Tablet Extended Release 24 Hr
12.5 mg PO DAILY Qty: 30 0RF
cephalexin 500 mg tablet
1,000 mg PO QID 9 Days Qty: 72 0RF
Continued
rabeprazole [AcipHex] 20 MG tablet,delayed release (DR/EC)
20 mg PO DAILY
febuxostat 40 MG tablet
120 mg PO DAILY
tadalafil [Cialis] 5 MG tablet
5 mg PO DAILY
losartan 100 MG tablet
100 mg PO DAILY 30 Days Qty: 30 0RF
hydralazine 50 mg Tablet
50 mg PO BID
ibuprofen 800 mg Tablet
800 mg PO DAILY@0300
sulfamethoxazole-trimethoprim [Bactrim DS] 800-160 mg Tablet
1 tab PO BID
diphenhydramine-acetaminophen [Tylenol PM Extra Strength] 25-500 mg Tablet
1 tab PO HS
Discharge Orders:
Discharge Patient (As Directed); Ordered 04/27/24
Ordered By: Caden Thompson
Discharge Date and Time
Print Language: [place]
--- NOTE | 2024-04-27 13:18 | CM ---
Pt medically stable for d/c per hospitalist.
CM consulted for VN/home care. Discussed w/ pt recommendation. 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
IMM reviewed, pt given copy, copy placed in chart
Spouse will transport at d/c
No other CM needs identified at this time
Plan: Home; no needs
== END 2024-04-27 16:05 | disposition home health service (06) | DRG 872 ==
LOC: 4 WEST ACU 23:41
PROVIDERS: Emergency Medicine; Physician Assistant Medical; ADMITTING PHYSICIAN Hospitalist; ATTENDING PHYSICIAN Hospitalist; CONSULT PHYSICIAN Orthopaedic Surgery Hand Surgery; CONSULT PHYSICIAN Surgery Vascular Surgery; EMERGENCY PHYSICIAN Student in an Organized Health Care Education/Training Program; FAMILY PHYSICIAN Internal Medicine; OTHER PHYSICIAN Internal Medicine Infectious Disease
DX: A41.9 Sepsis, unspecified organism (principal); L03.113 Cellulitis of right upper limb; Z68.42 Body mass index [BMI] 45.0-49.9, adult; I47.19 Other supraventricular tachycardia; S61.208A Unspecified open wound of other finger without damage to nail, initial encounter; I10 Essential (primary) hypertension; M10.9 Gout, unspecified; K21.9 Gastro-esophageal reflux disease without esophagitis; Z92.3 Personal history of irradiation; Z85.46 Personal history of malignant neoplasm of prostate; E66.813 Obesity, class 3; Z89.022 Acquired absence of left finger(s); Z89.021 Acquired absence of right finger(s); Z88.8 Allergy status to other drugs, medicaments and biological substances; Z88.5 Allergy status to narcotic agent; I34.81 Nonrheumatic mitral (valve) annulus calcification; G47.33 Obstructive sleep apnea (adult) (pediatric); N40.0 Benign prostatic hyperplasia without lower urinary tract symptoms; Z79.899 Other long term (current) drug therapy
CPT/HCPCS: 73130; 73220; 80048; 80053; 80202; 83036; 83605; 83735; 84443; 85025; 85027; 85652; 86140; 87040; 87070; 87147; 87186; 87205; 93005; 93306; 93923; 93930; 96365; 96367; 99285; A9575; Q9950

== ENCOUNTER 2024-10-24 16:40 | Emergency (ER) | payer MEDICARE, SELFPAY ==
[2024-10-24] VITALS (9 sets, daily range): BP systolic 167–194; BP diastolic 81–125; BMI 47.9
[2024-10-24 16:58] LABS: Hematocrit 44.5 % (39.0-52.0); Hemoglobin 15.7 g/dL (13.0-18.0); Mean Corp Hgb Conc. 35.3 g/dL (33.0-37.0); Mean Corpuscular Volume 86.1 fL (80.0-94.0); Nucleated Red Blood Cells % 0 % (-); Platelet Count 252 10^3/uL (130-400); Red Cell Dist. Width 12.7 % (11.5-14.5)
[2024-10-24 17:16] LABS: Chloride 110 mmol/L (98-107); Potassium 3.8 mmol/L (3.5-5.1); Sodium 142 mmol/L (135-145)
[2024-10-24 17:17] LABS: Carboxyhemoglobin 1.9 %
[2024-10-24 17:18] LABS: ALT (SGPT) 15 U/L (0-50); AST (SGOT) 21 U/L (17-59); Albumin 4.5 g/dl (3.5-5.0); Alkaline Phosphatase 90 U/L (38-126); Blood Urea Nitrogen 18 mg/dl (9-20); Calcium 9.7 mg/dl (8.4-10.2); Carbon Dioxide 24 mmol/L (22-30); Glucose 98 mg/dl (70-99); Total Protein 7.4 g/dl (6.3-8.2); eGFR > 60.00
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
[2024-10-24 21:10] LABS: Troponin I < 0.012 ng/ml
[2024-10-24] MEDS: APRESOLINE 10 MG IV ×2 (21:11→22:22)
== END 2024-10-24 23:59 | disposition home or self-care (01) ==
LOC: EMR 16:40
PROVIDERS: Emergency Medicine; Registered Nurse; EMERGENCY PHYSICIAN Emergency Medicine; FAMILY PHYSICIAN Internal Medicine
DX: I10 Essential (primary) hypertension (principal); R51.9 Headache, unspecified; R61 Generalized hyperhidrosis; R07.89 Other chest pain; R06.02 Shortness of breath; T75.89XA Other specified effects of external causes, initial encounter; X01.1XXA Exposure to smoke in uncontrolled fire, not in building or structure, initial encounter; I44.0 Atrioventricular block, first degree; Z73.3 Stress, not elsewhere classified; E66.3 Overweight; K21.9 Gastro-esophageal reflux disease without esophagitis; E11.9 Type 2 diabetes mellitus without complications; E11.40 Type 2 diabetes mellitus with diabetic neuropathy, unspecified; E11.69 Type 2 diabetes mellitus with other specified complication; M86.9 Osteomyelitis, unspecified; G47.30 Sleep apnea, unspecified; N40.0 Benign prostatic hyperplasia without lower urinary tract symptoms; M10.9 Gout, unspecified; M19.90 Unspecified osteoarthritis, unspecified site; Z85.46 Personal history of malignant neoplasm of prostate; Z92.3 Personal history of irradiation; Z88.5 Allergy status to narcotic agent; Z88.8 Allergy status to other drugs, medicaments and biological substances
CPT/HCPCS: 99284; 96374; 96375; 71046; 80053; 82375; 84484; 85025; 93005